=== PATIENT | male | born 1960 | race Caucasian/White ===

== ENCOUNTER → 2021-01-21 | Day surgery (SDC) | payer BC ==
[~2021-01-21] MED LIST: diphenhydrAMINE 50 MG/ML VIAL ONE
== END ==
LOC: CSHSDC/OP 13:03
PROVIDERS: ATTEND Family Medicine Sports Medicine
DX: U07.1 COVID-19 (principal); Z23 Encounter for immunization
CPT/HCPCS: 96365; 96374; J1200; J3490; Q0244